=== PATIENT | female | born 1970 | race Caucasian/White ===

== ENCOUNTER 2017-11-07 19:37 | Emergency (ER) | payer BC ==
[~2017-11-07] VITALS: Ht 172.7 cm; Wt 65.8 kg
[2017-11-07] MEDS ORDERED: diphenhydrAMINE 50 MG/1 ML VIAL ONE (19:55)
[2017-11-07] MEDS ORDERED: diphenhydrAMINE 50 MG/1 ML VIAL IM ONE (20:00)
--- NOTE | 2017-11-07 20:19 | NUR ---
Patient discharged to home in stable conditon. Lung sounds were clear and breath sounds were even and unlabored prior to discharge. Written and verbal after care instructions given. Patient verbalizes understanding of instructions. Patient able to ambulate unassisted with a steady gait. Patient left with all personal belongings.
[2017-11-07 20:27] VITALS: BP 122/82
== END 2017-11-07 20:19 | disposition home or self-care (01) ==
LOC: ER 19:40
DX: T78.40XA Allergy, unspecified, initial encounter (principal)
CPT/HCPCS: A4663; J1200